=== PATIENT | female | born 1970 | race African-American/Black ===

== ENCOUNTER 2023-09-22 11:29 | Emergency (ER) | payer MEDICAID, SELFPAY ==
--- NOTE | ~2023-09-22 | XR_ITS ---
EXAMINATION: XR CHEST CLINICAL INFORMATION: Cough. Chest tightness. COMPARISON: None available. TECHNIQUE: 2 views of the chest were obtained. FINDINGS: Cardiomediastinal silhouette is normal. No abnormal tracheal deviation. The lungs are mildly hyperexpanded. No focal consolidation, changes of congestion, pleural effusions or pneumothorax are seen. Regional skeleton is intact. Mild degenerative changes in the mid thoracic spine. Visualized upper abdomen is unremarkable. XR/XR chest 2V IMPRESSION: No radiographic evidence of pneumonia. No acute pulmonary process.
--- NOTE | 2023-09-22 11:42 | ED.URI ---
HPI - URI/Sore Throat General Chief Complaint: Upper Respiratory Symptoms Stated Complaint: flu like symptoms Time Seen by Provider: 09/22/23 12:02 Source: patient Mode of arrival: ambulatory Limitations: no limitations History of Present Illness HPI Narrative: Patient is a 53-year-old female with history of hospitalization for pneumonia presenting to the emergency department with complaint of cough, chills since yesterday. Reports she had COVID at the end of July and daughter in grandchild have recently been sick with URI symptoms. Has not taken temperature with thermometer. States that her symptoms feel similar to previous episodes of pneumonia. Denies chest pain or palpitations. Denies any nausea, vomiting, diarrhea. MD elicited complaint: fever and cough Pertinent past history: pneumonia Onset (ago): day(s) Consistency: constant Description of mucous: yellow Able to tolerate fluids by mouth: Yes Exacerbating factors: nothing Relieving factors: rest Context: sick contacts Associated symptoms: denies other symptoms Treatments prior to arrival: none Related Data Previous Rx's Medication Instructions Recorded ondansetron 4 mg disintegrating 4 mg PO Q8H PRN nausea and 09/22/23 tablet vomiting #10 tabs oseltamivir 75 mg capsule (Tamiflu) 75 mg PO BID 5 days #10 caps 09/22/23 Allergies Allergy/AdvReac Type Severity Reaction Status Date / Time No Known Allergies Allergy Verified 09/22/23 11:43 Review of Systems Review of Systems: As per HPI. Yes all other systems are reviewed and are negative Constitutional: Constitutional: Reports as per HPI [facility] Social History Social History Advance Directives: No Advance Directives Information Provided: Yes Physical Exam Vital Signs: Vital Signs: Last Vital Signs Temp 98.7 F 09/22/23 11:43 Pulse 100 09/22/23 13:13 Resp 16 09/22/23 13:13 BP 170/82 H 09/22/23 13:13 Pulse Ox 92 09/22/23 13:13 O2 Del Method Room Air 09/22/23 13:13 BMI result Body Mass Index 29.5 Vital signs have been reviewed and appear to be correct. Blood pressure elevated. Heart rate normal. Respiratory rate normal. Temperature normal. Oxygen saturation low. Const: General: cooperative, healthy appearing and no acute distress Orientation/consciousness: oriented to person, oriented to place, oriented to time and patient oriented x3 Limitations: no limitations HEENT: Head: Yes normocephalic and Yes atraumatic Ears: external ears normal General nose exam: Normal external nose present Face and sinus: Yes face symmetric Mouth: oropharynx normal and moist mucous membranes Throat: Yes uvula midline Eyes: Pupils: Equal, round and reactive pupils present Neck: Neck: Yes normal visual inspection and Yes supple Resp: Effort & Inspection: normal respiratory effort and able to speak in complete sentences Auscultation: clear to auscultation bilaterally Cardio: Rate: regular rate Rhythm: regular rhythm Heart sounds: S1 normal heart sound present and S2 normal heart sound present GI: Palpation (GI): Soft to palpation and nontender Auscultation: normoactive bowel sounds : General: Yes no CVA tenderness Back/Spine/Pelvis: Back: no CVA tenderness Skin: General skin exam: elasticity normal and turgor normal Neuro: General: oriented to person, oriented to place, oriented to time, patient oriented x3, moves all extremities, no focal motor deficits and CN's II-XI intact bilaterally Cranial nerves: Yes Equal, round and reactive pupils present Cognition (Neuro): normal cognition Extrem: General: Yes full ROM, Yes no pedal edema and Yes no calf tenderness Psych: Mental Status: mental status grossly normal Affect: normal affect Thought process: Normal thought process present Course Course Course Narrative: This is a rapid medical exam. Deferred additional HPI, ROS, PE to primary provider. 53 yo female with history of PNA, asthma, seasonal allergies here with complaints of chills, cough, chest tightness, nasal congestion x 2 days. Daughter had similar symptoms at home. Will obtain CXR, viral testing. VSS Medical Decision Making Medical Decision Making MDM Narrative: Patient is a 53-year-old female with history of hospitalization for pneumonia presenting to the emergency department with complaint of cough, chills since yesterday. On exam patient is awake, A+Ox3, BP elevated, oxygen low on room air, VS otherwise WNL, afebrile, normal neurological exam without focal deficits, physical exam findings as above. Patient denies hx of HTN but states that her BP becomes elevated when she is sick. Given reported symptoms and physical exam findings, initial differential includes viral illness, covid, flu, bronchitis, pneumonia. Swab positive for influenza A. X-ray notable for no evidence of pneumonia. My interpretation is in agreement with the radiologist's interpretation. Patient ambulated in department and O2 sat on room air increased to 96%. Feel patient is stable for discharge home at this time. Patient is agreeable to treatment with Tamiflu, will also prescribe ondansetron for nausea. Instructed patient to follow-up with primary care provider. Advised patient to also discuss with PCP that her blood pressure was elevated in the emergency department today. Return precautions discussed at bedside. Patient verbalized understanding of and agreement with plan. Differential Diagnosis Differential Diagnoses: The differential diagnosis associated with the presentation includes As per [facility]. Admission/Observation Consideration of admission/observation: Escalation of care including admission/observation considered Considered given low oxygen saturations on room air while at rest, however, oxygenation improved with ambulation. Lab Data [facility] Lab Attestation statement: I reviewed the patient's lab results. As per [facility]. Labs: Lab Results 09/22/23 Range/Units 11:47 Influenza Type A (PCR) POSITIVE A (Negative) Influenza Type B (PCR) NEGATIVE (Negative) RSV RNA Qual (PCR) NEGATIVE (Negative) SARS-CoV-2 RNA (RT-PCR) NEGATIVE (Negative) Independent Interpretation I performed an independent interpretation of an: Plain X-Ray Interpretation: No evidence of pneumonia on chest x-ray Radiology Impression Discussion of test interpretation with radiology: I have reviewed the radiologist's reading. Radiologist Impression: XR/XR chest 2V IMPRESSION: No radiographic evidence of pneumonia. No acute pulmonary process. External Record Review External record reviewed: Inpatient record, Office record and Outpatient record Prescription Management I considered prescription management with: Antiviral and Other Discharge Plan Discharge Clinical Impression: Influenza A Patient Disposition: Home, Self-Care Instructions: Influenza (DC), Flu Shot (Vaccine) for Adults (ED), Droplet Precautions (ED) Additional Instructions: You were evaluated in the emergency department today for cough, shortness of breath and fever. Your influenza swab was positive for influenza A. You are being prescribed Tamiflu which is an antiviral medication to decrease the length and severity of symptoms. This medication can cause stomach upset and nausea. You are being prescribed ondansetron which you can take every 8 hours as needed for nausea. Please follow-up with your primary care provider this week. You should isolate at home for the next 3-4 days and continue to wear mask while symptomatic. Be sure to get plenty of rest and drink plenty of fluids. You can take 650 mg Tylenol or 600 mg ibuprofen every 6 hours as needed for pain or fever. If necessary, you can alternate these medications and take something every 3 hours. For example, at noon take Tylenol, then at 3:00 p.m. take ibuprofen, then at 6:00 p.m. take Tylenol, etc.. Return to the emergency department if you develop worsening shortness of breath, difficulty breathing, fever not controlled with Tylenol and ibuprofen, chest pain, or any other concerning symptoms. Prescriptions: New oseltamivir [Tamiflu] 75 mg capsule 75 mg PO BID 5 Days Qty: 10 0RF ondansetron 4 mg tablet,disintegrating 4 mg PO Q8H PRN (Reason: nausea and vomiting) Qty: 10 0RF
[2023-09-22 11:43] VITALS: BP 179/100; PULSE 108; RESP 18; TEMP 37.1; O2SAT 93; BMI 29.5
[2023-09-22 12:35] LABS: Influenza A PCR POSITIVE (Negative); Influenza B PCR NEGATIVE (Negative); Resp Syncy Virus RNA Qual PCR NEGATIVE (Negative); SARS COV2 PCR INHOUSE NEGATIVE (Negative)
[2023-09-22 13:13] VITALS: BP 170/82; PULSE 100; RESP 16; O2SAT 92
--- NOTE | 2023-09-22 13:31 | PC.NURSE ---
ambulated patient with pulse ox, maintained 95-96% on room air. respirations remain even and unlabored while laying in room, no signs/symptoms of distress
== END 2023-09-22 14:11 | disposition home or self-care (01) ==
PROVIDERS: Nurse Practitioner Family; Emergency Provider Emergency Medicine Emergency Medical Services
DX: J10.1 Influenza due to other identified influenza virus with other respiratory manifestations (principal); R50.9 Fever, unspecified; R07.89 Other chest pain; Z11.52 Encounter for screening for COVID-19
CPT/HCPCS: 0241U; 71046; 99282; 99283

== ENCOUNTER 2023-09-24 22:13 | Emergency (ER) | payer MEDICAID, SELFPAY ==
[2023-09-24 22:43] VITALS: BP 148/96; PULSE 87; RESP 18; TEMP 35.9; O2SAT 97; BMI 29.2
--- NOTE | 2023-09-24 22:54 | PC.NURSE ---
Patient reports she started taking TamiFlu on Saturday but has been having increased blood pressures since starting the medication. Patient is reporting that she is having headaches due to the increased BP. Denies any ocular involvment at this time. Patient is resting on the stretcher, respirations even and unlabored, skin pwd, alert and oriented x4 , no apparent distress at this time
--- NOTE | 2023-09-24 23:29 | ED.GENADULT ---
HPI - General Adult General Chief complaint: General Medical Stated complaint: Flu SymptomsTamaflu started Saturday Time Seen by Provider: 09/24/23 22:56 Source: patient and RN notes reviewed Mode of arrival: ambulatory Limitations: no limitations History of Present Illness HPI narrative: Pt is a 53yo female who presents to the ED with concerns of HTN. Pt was diagnosed with the flu on Saturday and is still feeling under the weather. However today the pt states she had to take her daughter to school and walk the dog, afterwards she developed a headache. She took her BP at home and states it was 151/101. Pt stated to this technical publications writer, no hx of HTN and is on no antihypertensives and was concerned by the elevated BP. To nursing pt stated a hx of HTN controlled without medications. She notes that because of her age and family hx she wanted to come in and get checked out. She states that she has found no relief of her lux with tylenol or ibuprofen. Pt has been taking Tamiflu. Denies changes in vision, chest pain, or syncopal episodes. Related Data Previous Rx's Medication Instructions Recorded ondansetron 4 mg disintegrating 4 mg PO Q8H PRN nausea and 09/22/23 tablet vomiting #10 tabs oseltamivir 75 mg capsule (Tamiflu) 75 mg PO BID 5 days #10 caps 09/22/23 Allergies Allergy/AdvReac Type Severity Reaction Status Date / Time No Known Allergies Allergy Verified 09/24/23 22:43 Review of Systems Constitutional: Constitutional: Reports body ache(s), Reports chills, Reports fatigue, Reports fever(s), Reports headache(s) and Reports weakness Eyes: Eyes: Denies change in vision ENT: Reports Normal hearing present, Denies dizziness and Reports headache(s) Cardiovascular: Cardiovascular: Denies chest pain, Denies syncope and Denies dyspnea Respiratory: Respiratory: Denies dyspnea Gastrointestinal: Gastrointestinal: Reports nausea Neurologic: Reports Normal hearing present, Denies Neuro-related abnormal movements, Denies Abnormal speech present, Denies dizziness, Denies syncope, Reports headache(s) and Reports weakness Endocrine: Endocrine: Reports fatigue PMF Social History Social History Smoked in Last 30 Days: No Use of substances other than those prescribed or required for medical reasons: Yes Substance Use Type: Marijuana Substance Use Frequency: Occasionally Advance Directives: No Advance Directives Information Provided: No Patient : No Physical Exam ED Vital Signs: Vital Signs - 24 hr 09/24/23 22:43 Temperature 96.7 F L Pulse Rate 87 Respiratory Rate 18 Blood Pressure 148/96 H Pulse Oximetry 97 Oxygen Delivery Method Room Air BMI result Body Mass Index 29.2 Const General: cooperative, no acute distress, alert and ill appearing Orientation/consciousness: patient oriented x3 HENMT Head: Yes normal to inspection, Yes normocephalic and Yes atraumatic Ears: hearing grossly normal bilaterally Eyes General: appearance normal, both eyes and all related structures Neuro General: patient oriented x3 Cranial nerves: Yes CN's II-XII intact bilaterally and Yes Normal hearing present Speech: No Abnormal speech present Motor exam (neuro): 5/5 motor strength present throughout Medical Decision Making Medical Decision Making MDM Narrative: 53-year-old female presents for evaluation of headache and high blood pressure. She was diagnosed with influenza a 2 days ago at this facility. She reports headache, congestion, nausea. This is likely due to the influenza. Vital signs are stable there is no evidence of hypoxia or respiratory depression. Her blood pressure was slightly elevated most recently 148/96. She has no neuro deficits, chest pain. I do not feel that it is appropriate to start antihypertensive medication just because her blood pressure is slightly elevated while she is ill. I encouraged her to check her blood pressure daily and follow up with her doctor to assess her healthy blood pressure Differential Diagnosis Differential Diagnoses: The differential diagnosis associated with the presentation includes (influenza, HTN emergency, essential HTN, anxiety, idiopathic intracranial HTN) Discharge Plan Discharge Clinical Impression: Influenza A Patient Disposition: Home, Self-Care Instructions: Influenza (ED) Additional Instructions: Your blood pressure is slightly elevated today but is likely due to your influenza diagnosis. I recommend that you follow-up with your doctor for blood pressure checks when you are healthy to get a true assessment of your blood pressure. Return for new or worsening symptoms Use ibuprofen/Tylenol for pain Stay well-hydrated Prescriptions: No Action oseltamivir [Tamiflu] 75 mg capsule 75 mg PO BID 5 Days Qty: 10 0RF ondansetron 4 mg tablet,disintegrating 4 mg PO Q8H PRN (Reason: nausea and vomiting) Qty: 10 0RF
--- NOTE | 2023-09-25 00:20 | PC.NURSE ---
this Rn attempt to review discharge instruction with pt, pt not available and left. provider aware.
== END 2023-09-25 00:22 | disposition home or self-care (01) ==
PROVIDERS: Emergency Provider Emergency Medicine; PCP Internal Medicine
DX: J10.1 Influenza due to other identified influenza virus with other respiratory manifestations (principal); R51.9 Headache, unspecified
CPT/HCPCS: 99282; 99284